=== PATIENT | female | born 1970 | race Caucasian/White ===

== ENCOUNTER 2016-09-09 07:24 | Emergency (ER) | payer BC ==
[~2016-09-09] VITALS: Ht 154.9 cm; Wt 74.0 kg
[~2016-09-09 07:24] MED LIST: ALBUTEROL SULF8.5 GM IH; ATHENOL325 MG PO; CITALOPRAM HBR40 MG PO; COLACE100 MG PO; DAILY MULTIPLE1 EACH PO; DAILY VITAMIN1 EAC8 PO; FLOMAX0.4 MG PO; LEVAQUIN750 MG PO; LORTAB 5-325 M1 EACH PO; MELOXICAM15 MG PO; MULTIPLE VITAM1 EACH PO; NAPROSYN-EC500 MG PO; PERCOCET 5/31 TABLET PO; PREDNISONE20 MG PO; PROAIR HFA8.5 GM IH; PROMETHAZINE HC25 M1 PO; PROVENTIL,2.5 MG/3 M IH; PROVENTIL,200 INHALA IH; SINGULAIR10 MG PO; TORADOL10 MG PO; ULTRAM50 MG PO; VENTOLIN HFA18 GM IH; VICODIN 5-3001 EACH PO; ZOFRAN ODT4 MG PO; ZOFRAN4 MG PO; ZYRTEC10 M1 PO; ZYRTEC10 M2 PO
[2016-09-09 08:12] LABS: EOSINOPHIL (%) 1.8 % (0-5); EOSINOPHIL COUNT 0.1 K/uL (0-0.3); HEMATOCRIT 37.2 % (36.0-46.0); IMMATURE GRANULOCYTE (%) 0.1 % (0.0-0.7); IMMATURE GRANULOCYTE COUNT 0.1 K/uL; LYMPHOCYTE COUNT 0.9 K/uL (1.0-2.8); MCH 29.6 PG (29.0-34.0); MCHC 33.9 G/DL (30.0-36.0); MCV 87.5 FL (83-99); MEAN PLAT.VOLUME 10.4 uM^3 (9.5-12.4); MONOCYTE (%) 5.9 % (3-12); MONOCYTE COUNT 0.5 K/uL (0-0.8); NEUTROPHIL COUNT 6.2 K/uL (1.8-6.4); PLATELET COUNT 277 K/uL (156-360); RBC DIS.WIDTH-CV 12.7 % (11.8-14.6); RBC DIS.WIDTH-SD 39.4 % (39-53); RED BLOOD COUNT 4.25 M/uL (3.80-5.20); WHITE BLOOD COUNT 7.8 K/uL (4.1-10.2)
[2016-09-09 08:53] LABS: ANION GAP 6 MEQ/L (2-14); CHLORIDE 107 MEQ/L (99-109); POTASSIUM 3.9 MEQ/L (3.7-5.4); SAMPLE HEMOLYSIS CHECK 0; SAMPLE ICTERIC CHECK 0; SAMPLE LIPEMIA CHECK 0; SODIUM 141 MEQ/L (136-147); TOTAL BILIRUBIN 0.6 MG/DL (0.0-1.0)
[2016-09-09 08:59] LABS: ALKALINE PHOSPHATASE 72 IU/L (3-129); GFR ESTIMATE (CALCULATED) > 59 mL/min/; GLUCOSE 95 mg/dL (70-99); LIPASE 46 U/L (1.0-51.0); UREA NITROGEN (BUN) 16 mg/dL (9-23)
[2016-09-09] MEDS ORDERED: NAPROXEN500 MG PO (09:24)
[2016-09-09] MEDS ORDERED: ZOFRAN ODT4 MG PO (09:24)
[2016-09-09] MEDS ORDERED: WELLBUTRIN XL300 MG PO (09:33)
[2016-09-09 09:36] VITALS: BP 118/76
== END 2016-09-09 10:00 | disposition home or self-care (01) ==
LOC: EME 07:24
PROVIDERS: Physician Assistant
DX: K80.50 Calculus of bile duct without cholangitis or cholecystitis without obstruction (principal); Z87.891 Personal history of nicotine dependence; Z88.2 Allergy status to sulfonamides; Z98.1 Arthrodesis status; J45.909 Unspecified asthma, uncomplicated; Z87.442 Personal history of urinary calculi; Z90.49 Acquired absence of other specified parts of digestive tract
CPT/HCPCS: 74020; 76705; 80053; 81003; 83690; 85025; 99281; 99284; J1885

== ENCOUNTER 2016-11-07 09:08 | Emergency (ER) | payer BC ==
[~2016-11-07] VITALS: Ht 152.4 cm; Wt 71.9 kg
[~2016-11-07 09:08] MED LIST changes: +NAPROXEN500 MG PO; +WELLBUTRIN XL300 MG PO
[2016-11-07 09:55] LABS: HEMATOCRIT 39.9 % (36.0-46.0); MCH 28.7 PG (29.0-34.0); MCHC 32.8 G/DL (30.0-36.0); MCV 87.3 FL (83-99); MEAN PLAT.VOLUME 10.4 uM^3 (9.5-12.4); PLATELET COUNT 343 K/uL (156-360); RBC DIS.WIDTH-CV 12.2 % (11.8-14.6); RBC DIS.WIDTH-SD 39.2 % (39-53); RED BLOOD COUNT 4.57 M/uL (3.80-5.20); WHITE BLOOD COUNT 6.9 K/uL (4.1-10.2)
[2016-11-07 10:04] LABS: ADD MIUA? YES; BILIRUBIN NEGATIVE; BLOOD LARGE; COLOR YELLOW ((YELLOW)); GLUCOSE (STRIP) NEGATIVE; KETONES NEGATIVE; LEUKOCYTES MODERATE; NITRITE NEGATIVE; PROTEIN (STRIP) 100; UROBILINOGEN 0.2 MG/DL (0.2-1.0)
[2016-11-07 10:04] LABS: CHLORIDE 108 mEq/L (99-109); POTASSIUM 4.4 mEq/L (3.7-5.4); SODIUM 141 mEq/L (136-147)
[2016-11-07 10:06] LABS: GLUCOSE 94 mg/dL (70-99)
[2016-11-07 10:07] LABS: ANION GAP 9 MEQ/L (2-14)
[2016-11-07 10:10] LABS: GFR ESTIMATE (CALCULATED) > 59 mL/min/; UREA NITROGEN (BUN) 13 mg/dL (9-23)
[2016-11-07 10:19] LABS: QUANTITATIVE HCG < 4.0 MIU/ML
[2016-11-07 10:43] LABS: BACTERIA NONE SEEN /HPF; EPITHELIAL CELLS RARE /HPF; MUCUS 2+ /LPF; RED BLOOD CELLS TNTC /HPF (0-5); UCUL ADDED? NO; WHITE BLOOD CELLS 15-20 /HPF (0-5)
[2016-11-07] MEDS ORDERED: NAPROSYN500 MG PO (10:49)
[2016-11-07] MEDS ORDERED: MORPHINE SULFAT15 MG PO (10:49)
[2016-11-07 10:59] VITALS: BP 150/85
== END 2016-11-07 11:02 | disposition home or self-care (01) ==
LOC: EME 09:08
PROVIDERS: Emergency Medicine
DX: N13.2 Hydronephrosis with renal and ureteral calculous obstruction (principal); R31.9 Hematuria, unspecified; Z87.442 Personal history of urinary calculi; J45.909 Unspecified asthma, uncomplicated; Z87.891 Personal history of nicotine dependence
CPT/HCPCS: 74176; 80048; 81003; 84702; 85027; 87086; 99281; 99284; J1885; J2270; J7120

== ENCOUNTER 2016-11-19 14:26 | Emergency (ER) | payer BC ==
[~2016-11-19] VITALS: Ht 152.4 cm; Wt 73.3 kg
[~2016-11-19 14:26] MED LIST changes: +MORPHINE SULFAT15 MG PO; +NAPROSYN500 MG PO
[2016-11-19 14:54] LABS: HEMATOCRIT 40.1 % (36.0-46.0); MCH 28.9 PG (29.0-34.0); MCHC 33.4 G/DL (30.0-36.0); MCV 86.6 FL (83-99); MEAN PLAT.VOLUME 10.2 uM^3 (9.5-12.4); PLATELET COUNT 354 K/uL (156-360); RBC DIS.WIDTH-CV 12.1 % (11.8-14.6); RBC DIS.WIDTH-SD 38.6 % (39-53); RED BLOOD COUNT 4.63 M/uL (3.80-5.20); WHITE BLOOD COUNT 13.9 K/uL (4.1-10.2)
[2016-11-19 14:57] LABS: CHLORIDE 105 mEq/L (99-109); SODIUM 138 mEq/L (136-147)
[2016-11-19 14:59] LABS: GLUCOSE 98 mg/dL (70-99)
[2016-11-19 15:01] LABS: ANION GAP 10 MEQ/L (2-14)
[2016-11-19 15:03] LABS: GFR ESTIMATE (CALCULATED) 51 mL/min/
[2016-11-19 15:04] LABS: UREA NITROGEN (BUN) 16 mg/dL (9-23)
[2016-11-19 15:33] LABS: ADD MIUA? YES; BILIRUBIN NEGATIVE; BLOOD SMALL; COLOR YELLOW ((YELLOW)); GLUCOSE (STRIP) NEGATIVE; KETONES NEGATIVE; LEUKOCYTES SMALL; NITRITE NEGATIVE; PROTEIN (STRIP) NEGATIVE; SPECIFIC GRAVITY 1.015 (1.000-1.030); UROBILINOGEN 0.2 MG/DL (0.2-1.0)
[2016-11-19] MEDS ORDERED: FLOMAX0.4 MG PO (15:40)
[2016-11-19] MEDS ORDERED: ZOFRAN ODT4 MG PO (15:42)
[2016-11-19 15:44] LABS: BACTERIA RARE /HPF; EPITHELIAL CELLS 1+ /HPF; MUCUS NONE SEEN /LPF; UCUL ADDED? NO
[2016-11-19 16:02] VITALS: BP 142/83
== END 2016-11-19 16:03 | disposition home or self-care (01) ==
LOC: EME 14:26
DX: N20.0 Calculus of kidney (principal); R31.9 Hematuria, unspecified; Z98.1 Arthrodesis status; Z87.891 Personal history of nicotine dependence
CPT/HCPCS: 74000; 80048; 81003; 85027; 99281; 99284; J1885

== ENCOUNTER 2017-01-06 17:50 | Emergency (ER) | payer BC ==
[~2017-01-06] VITALS: Ht 152.4 cm; Wt 75.6 kg
[2017-01-06 18:49] LABS: ADD MIUA? YES; BILIRUBIN NEGATIVE; BLOOD SMALL; COLOR YELLOW ((YELLOW)); GLUCOSE (STRIP) NEGATIVE; KETONES NEGATIVE; LEUKOCYTES LARGE; NITRITE NEGATIVE; PROTEIN (STRIP) NEGATIVE; SPECIFIC GRAVITY 1.019 (1.000-1.030); UROBILINOGEN 0.2 MG/DL (0.2-1.0)
[2017-01-06 18:49] LABS: HEMATOCRIT 38.5 % (36.0-46.0); MCHC 33.2 G/DL (30.0-36.0); MCV 87.3 FL (83-99); MEAN PLAT.VOLUME 10.1 uM^3 (9.5-12.4); PLATELET COUNT 371 K/uL (156-360); RBC DIS.WIDTH-CV 12.3 % (11.8-14.6); RBC DIS.WIDTH-SD 39.8 % (39-53); RED BLOOD COUNT 4.41 M/uL (3.80-5.20); WHITE BLOOD COUNT 9.9 K/uL (4.1-10.2)
[2017-01-06 18:54] LABS: BACTERIA NONE SEEN /HPF; EPITHELIAL CELLS RARE /HPF; HYALINE CASTS 0-5 /LPF; MUCUS TRACE /LPF; RED BLOOD CELLS 20-30 /HPF (0-5); UNCLASSIFIED CRYSTALS 4+ /HPF; WHITE BLOOD CELLS TNTC /HPF (0-5)
[2017-01-06 18:57] LABS: CHLORIDE 106 mEq/L (99-109); SODIUM 140 mEq/L (136-147)
[2017-01-06 18:59] LABS: GLUCOSE 84 mg/dL (70-99)
[2017-01-06 19:00] LABS: ANION GAP 6 MEQ/L (2-14)
[2017-01-06 19:03] LABS: GFR ESTIMATE (CALCULATED) > 59 mL/min/
[2017-01-06 19:04] LABS: UREA NITROGEN (BUN) 14 mg/dL (9-23)
[2017-01-06 19:15] LABS: QUANTITATIVE HCG < 4.0 MIU/ML
[2017-01-06] MEDS ORDERED: PERCOCET 5/31 TABLET PO (20:47)
[2017-01-06] MEDS ORDERED: ZOFRAN ODT4 MG PO (20:47)
[2017-01-06 21:02] VITALS: BP 125/75
== END 2017-01-06 21:16 | disposition home or self-care (01) ==
LOC: EME 17:50
PROVIDERS: Physician Assistant
DX: N20.1 Calculus of ureter (principal); N20.0 Calculus of kidney; R30.0 Dysuria; R31.9 Hematuria, unspecified; R35.0 Frequency of micturition; R11.2 Nausea with vomiting, unspecified; Z87.442 Personal history of urinary calculi; J45.909 Unspecified asthma, uncomplicated; Z87.891 Personal history of nicotine dependence
CPT/HCPCS: 74176; 80048; 81003; 84702; 85027; 87086; 99281; 99283; J1885

== ENCOUNTER 2017-02-22 15:47 | Emergency (ER) | payer BC ==
[~2017-02-22] VITALS: Ht 152.4 cm; Wt 75.0 kg
[2017-02-22 16:52] LABS: HEMATOCRIT 38.7 % (36.0-46.0); MCH 29.7 PG (29.0-34.0); MCHC 34.1 G/DL (30.0-36.0); MEAN PLAT.VOLUME 10.2 uM^3 (9.5-12.4); PLATELET COUNT 360 K/uL (156-360); RBC DIS.WIDTH-CV 12.4 % (11.8-14.6); RBC DIS.WIDTH-SD 39.6 % (39-53); RED BLOOD COUNT 4.45 M/uL (3.80-5.20); WHITE BLOOD COUNT 8.3 K/uL (4.1-10.2)
[2017-02-22 17:00] LABS: CHLORIDE 105 mEq/L (99-109); POTASSIUM 3.6 mEq/L (3.7-5.4); SODIUM 139 mEq/L (136-147)
[2017-02-22 17:02] LABS: GLUCOSE 94 mg/dL (70-99)
[2017-02-22 17:03] LABS: ANION GAP 10 MEQ/L (2-14)
[2017-02-22 17:05] LABS: GFR ESTIMATE (CALCULATED) > 59 mL/min/
[2017-02-22 17:06] LABS: UREA NITROGEN (BUN) 16 mg/dL (9-23)
[2017-02-22 17:14] LABS: QUANTITATIVE HCG < 4.0 MIU/ML
[2017-02-22 17:15] LABS: ADD MIUA? YES; BILIRUBIN NEGATIVE; BLOOD NEGATIVE; COLOR YELLOW ((YELLOW)); GLUCOSE (STRIP) NEGATIVE; KETONES NEGATIVE; LEUKOCYTES LARGE; NITRITE NEGATIVE; PROTEIN (STRIP) 30; UROBILINOGEN 0.2 MG/DL (0.2-1.0)
[2017-02-22 17:19] LABS: BACTERIA RARE /HPF; EPITHELIAL CELLS 2+ /HPF; MUCUS TRACE /LPF; WHITE BLOOD CELLS 20-30 /HPF (0-5)
[2017-02-22] MEDS ORDERED: NAPROSYN500 MG PO (18:05)
[2017-02-22] MEDS ORDERED: ULTRAM50 MG PO (18:05)
[2017-02-22] MEDS ORDERED: KEFLEX500 MG PO (18:05)
[2017-02-22 18:34] VITALS: BP 132/74
== END 2017-02-22 18:35 | disposition home or self-care (01) ==
LOC: EME 15:47
PROVIDERS: Nurse Practitioner Family
DX: N39.0 Urinary tract infection, site not specified (principal); N20.0 Calculus of kidney; J45.909 Unspecified asthma, uncomplicated; Z87.442 Personal history of urinary calculi; Z87.891 Personal history of nicotine dependence; Z90.49 Acquired absence of other specified parts of digestive tract
CPT/HCPCS: 74000; 80048; 81003; 84702; 85027; 99281; 99285; J1885; J2270; J2405; J7030

== ENCOUNTER 2017-04-24 17:13 | Emergency (ER) | payer BC ==
[~2017-04-24] VITALS: Ht 152.4 cm; Wt 75.5 kg
[~2017-04-24 17:13] MED LIST changes: +KEFLEX500 MG PO
[2017-04-24 18:02] LABS: HEMATOCRIT 39.5 % (36.0-46.0); MCH 29.6 PG (29.0-34.0); MCHC 34.4 G/DL (30.0-36.0); MCV 85.9 FL (83-99); MEAN PLAT.VOLUME 10.4 uM^3 (9.5-12.4); PLATELET COUNT 343 K/uL (156-360); RBC DIS.WIDTH-CV 12.3 % (11.8-14.6); RBC DIS.WIDTH-SD 38.5 % (39-53); WHITE BLOOD COUNT 13.2 K/uL (4.1-10.2)
[2017-04-24 18:18] LABS: CHLORIDE 108 mEq/L (99-109); SODIUM 139 mEq/L (136-147)
[2017-04-24 18:20] LABS: GLUCOSE 108 mg/dL (70-99)
[2017-04-24 18:21] LABS: ANION GAP 9 MEQ/L (2-14)
[2017-04-24 18:22] LABS: TOTAL BILIRUBIN 0.5 mg/dL (0.0-1.0)
[2017-04-24 18:23] LABS: ALKALINE PHOSPHATASE 88 IU/L (3-129)
[2017-04-24 18:24] LABS: GFR ESTIMATE (CALCULATED) > 59 mL/min/
[2017-04-24 18:25] LABS: UREA NITROGEN (BUN) 20 mg/dL (9-23)
[2017-04-24 18:27] LABS: LIPASE 21 U/L (1.0-51.0)
[2017-04-24 18:35] LABS: QUANTITATIVE HCG < 4.0 MIU/ML
[2017-04-24 18:52] LABS: ADD MIUA? YES; BILIRUBIN NEGATIVE; BLOOD MODERATE; COLOR YELLOW ((YELLOW)); GLUCOSE (STRIP) NEGATIVE; KETONES NEGATIVE; LEUKOCYTES NEGATIVE; NITRITE NEGATIVE; PROTEIN (STRIP) NEGATIVE; UROBILINOGEN 0.2 MG/DL (0.2-1.0)
[2017-04-24 19:05] LABS: BACTERIA RARE /HPF; EPITHELIAL CELLS RARE /HPF; HYALINE CASTS 0-5 /LPF; MUCUS TRACE /LPF; RED BLOOD CELLS 15-20 /HPF (0-5); UCUL ADDED? NO; UNCLASSIFIED CRYSTALS 1+ /HPF; WHITE BLOOD CELLS 0-5 /HPF (0-5)
[2017-04-24] MEDS ORDERED: PERCOCET 5/31 TABLET PO (20:17)
[2017-04-24] MEDS ORDERED: ZOFRAN ODT4 MG PO (20:17)
[2017-04-24] MEDS ORDERED: FLOMAX0.4 MG PO (20:17)
[2017-04-24 20:37] VITALS: BP 128/90
== END 2017-04-24 20:38 | disposition home or self-care (01) ==
LOC: EME 17:13
DX: N20.0 Calculus of kidney (principal); R11.2 Nausea with vomiting, unspecified; J45.909 Unspecified asthma, uncomplicated; Z87.442 Personal history of urinary calculi; Z90.49 Acquired absence of other specified parts of digestive tract; Z87.891 Personal history of nicotine dependence
CPT/HCPCS: 74177; 80053; 81003; 83690; 84702; 85027; 99281; 99285; J1885; J2405; J3010; J7030

== ENCOUNTER 2017-12-11 08:06 | Emergency (ER) | payer BC ==
[~2017-12-11] VITALS: Ht 152.4 cm; Wt 76.6 kg
[2017-12-11 08:34] LABS: HEMATOCRIT 42.1 % (36.0-46.0); HEMOGLOBIN 14.2 G/DL (11.9-15.5); MCH 29.8 PG (29.0-34.0); MCHC 33.7 G/DL (30.0-36.0); MCV 88.3 FL (83-99); PLATELET COUNT 352 K/uL (156-360); RBC DIS.WIDTH-CV 12.1 % (11.8-14.6); RBC DIS.WIDTH-SD 38.8 % (39-53); RED BLOOD COUNT 4.77 M/uL (3.80-5.20); WHITE BLOOD COUNT 8.2 K/uL (4.1-10.2)
[2017-12-11 08:42] LABS: APPEARANCE SL.HAZY ((CLEAR)); BILIRUBIN NEGATIVE; BLOOD NEGATIVE; COLOR YELLOW ((YELLOW)); GLUCOSE (STRIP) NEGATIVE; KETONES NEGATIVE; LEUKOCYTES SMALL; NITRITE NEGATIVE; PROTEIN (STRIP) NEGATIVE; SPECIFIC GRAVITY 1.024 (1.000-1.030); UROBILINOGEN 0.2 MG/DL (0.2-1.0)
[2017-12-11 08:51] LABS: BACTERIA RARE /HPF; CALCIUM OXALATE CRYSTALS 4+ /HPF; EPITHELIAL CELLS RARE /HPF; MUCUS TRACE /LPF; RED BLOOD CELLS 0-5 /HPF (0-5); UCUL ADDED? NO; WHITE BLOOD CELLS 0-5 /HPF (0-5)
[2017-12-11 09:31] LABS: CHLORIDE 105 MEQ/L (99-109); CREATININE 0.8 MG/DL (0.6-1.3); GFR ESTIMATE (CALCULATED) > 59 mL/min/; GLUCOSE 105 mg/dL (70-99); POTASSIUM 4.2 MEQ/L (3.7-5.4); SODIUM 138 MEQ/L (136-147); UREA NITROGEN (BUN) 18 mg/dL (9-23)
[2017-12-11 10:08] LABS: QUANTITATIVE HCG 5.1 MIU/ML
[2017-12-11] MEDS ORDERED: ZOFRAN4 MG SL (11:43)
[2017-12-11 12:26] LABS: ALBUMIN 4.3 G/DL (3.2-4.8); ALKALINE PHOSPHATASE 76 IU/L (3-129); ALT (GPT) 19 IU/L (3-49); AST (GOT) 18 IU/L (2-34); DIRECT BILIRUBIN 0.1 mg/dL (0.0-0.3); TOTAL BILIRUBIN 0.3 MG/DL (0.0-1.0); TOTAL PROTEIN 6.9 G/DL (6.4-8.3)
[2017-12-11 12:42] LABS: LIPASE 22 U/L (1.0-51.0)
[2017-12-11] MEDS ORDERED: KEFLEX500 MG PO (13:03)
[2017-12-11 13:15] VITALS: BP 125/88
== END 2017-12-11 13:15 | disposition home or self-care (01) ==
LOC: EME 08:06
DX: R10.9 Unspecified abdominal pain (principal); R11.2 Nausea with vomiting, unspecified; Z87.442 Personal history of urinary calculi; J45.909 Unspecified asthma, uncomplicated; Z88.2 Allergy status to sulfonamides; Z87.891 Personal history of nicotine dependence; Z90.49 Acquired absence of other specified parts of digestive tract
CPT/HCPCS: 74176; 80048; 80076; 81003; 83690; 84702; 85027; 99281; 99285; J2405; J2765; J3010; J7030

== ENCOUNTER 2017-12-25 07:24 | Emergency (ER) | payer BC ==
[~2017-12-25] VITALS: Ht 160 cm; Wt 76.4 kg
[~2017-12-25 07:24] MED LIST changes: +ZOFRAN4 MG SL
[2017-12-25] MEDS ORDERED: PERCOCET 5/31 TABLET PO (09:01)
[2017-12-25 09:17] VITALS: BP 122/78
== END 2017-12-25 09:17 | disposition home or self-care (01) ==
LOC: EME 07:24
DX: M54.5 Low back pain (principal); G89.29 Other chronic pain; Z98.1 Arthrodesis status; Z87.39 Personal history of other diseases of the musculoskeletal system and connective tissue; Z88.2 Allergy status to sulfonamides
CPT/HCPCS: 99281; 99284